=== PATIENT | male | born 1995 ===

== ENCOUNTER 2018-11-01 10:22 | Outpatient (CLI) | payer OTHER ==
[~2018-11-01] VITALS: Ht 167.6 cm; Wt 80.7 kg
[2018-11-01] MEDS ORDERED: ZYRTEC10 MG PO (11:49)
[2018-11-01] MEDS ORDERED: FLONASE16 GM NASAL (11:49)
== END 2018-11-01 10:40 | disposition home or self-care (01) ==
LOC: OFIC 805 10:22
DX: J31.0 Chronic rhinitis (principal); J34.3 Hypertrophy of nasal turbinates; R06.7 Sneezing

== ENCOUNTER 2019-01-31 10:28 | Outpatient (CLI) | payer OTHER ==
[~2019-01-31] VITALS: Ht 152.4 cm; Wt 80.7 kg
[~2019-01-31 10:28] MED LIST: FLONASE16 GM NASAL; ZYRTEC10 MG PO
[2019-01-31] MEDS ORDERED: ZYRTEC10 MG PO (11:36)
== END 2019-01-31 10:40 | disposition home or self-care (01) ==
LOC: OFIC 805 10:28
DX: J31.0 Chronic rhinitis (principal); J34.3 Hypertrophy of nasal turbinates; R06.7 Sneezing